=== PATIENT | male | born 1975 | race Caucasian/White ===

== ENCOUNTER 2020-01-12 16:24 | Emergency (ER) | payer BC, SELFPAY ==
--- NOTE | ~2020-01-12 | CT_ITS ---
EXAMINATION: CT abdomen pelvis w con INDICATION: Abdominal pain and nausea TECHNIQUE: Computed tomographic images of the abdomen and pelvis were obtained after the administrati on of 100 cc of Omnipaque 350 intravenous contrast. The dose-length product (DLP) was 691.86 mGy-cm. Automated exposure control and iterative reconstruction technique were employed. COMPARISON: None available FINDINGS: Minimal dependent atelectasis is present in the lung bases. The heart size is normal. The l iver, spleen, pancreas, gallbladder, and adrenal glands are normal. Cysts of the kidneys measure up t o 11 mm on the right. No pathologically enlarged abdominal or pelvic lymph nodes are identified. Ther e is no free intraperitoneal gas or evidence of bowel obstruction. The appendix is normal. IMPRESSION: 1. No CT correlate for the patient's symptoms. Reviewed, dictated and finalized at location A.
[2020-01-12 16:33] VITALS: BP 157/94; PULSE 88; RESP 18; TEMP 35.9; O2SAT 100
--- NOTE | 2020-01-12 16:53 | ED.ABDPAIN ---
HPI - Abdominal Pain General Chief Complaint: Abdominal Pain <CANDICE Johnson Last Filed: 01/12/20 18:26> Stated Complaint: Possible Appendicitis <CANDICE Johnson Last Filed: 01/12/20 18:26> Time Seen by Provider: 01/12/20 16:26 <CANDICE Johnson Last Filed: 01/12/20 18:26> Source: patient <CANDICE Johnson Last Filed: 01/12/20 18:26> Mode of arrival: ambulatory <CANDICE Johnson Filed: 01/12/20 18:26> Limitations: no limitations <CANDICE Johnson Last Filed: 01/12/20 18:26> History of Present Illness HPI narrative: Patient is a 44-year-old male who presents to emergency department from primary care doctor office for evaluation of right lower quadrant abdominal pain with associated nausea and chills for the last day patient has not taken anything for his symptoms patient denies rectal bleeding melena vomiting diarrhea patient denies sick contacts or similar occurrence in the past patient notes he has had nonproductive cough for the last 3 weeks patient on arrival resting comfortably in the room in no distress has not taken anything for his symptoms and denies similar occurrence in the past <CANDICE Johnson Last Filed: 01/12/20 18:26> Related Data Home Medications: Home Medications Medication Instructions Recorded Confirmed aripiprazole mg 01/12/20 dextroamphetamine-amphetamine PO 01/12/20 [Adderall XR] escitalopram oxalate mg 01/12/20 lisinopril 01/12/20 testosterone cypionate mg 01/12/20 <CANDICE Johnson Last Filed: 01/12/20 18:26> Allergies/Adverse Reactions: Allergies Allergy/AdvReac Type Severity Reaction Status Date / Time amoxicillin Allergy Unknown Unknown Verified 01/12/20 16:41 Penicillins Allergy Unknown Unknown Verified 01/12/20 16:41 <CANDICE Johnson Last Filed: 01/12/20 18:26> Review of Systems Review of Systems: All systems reviewed & are unremarkable except as noted in HPI and below <CANDICE Johnson Last Filed: 01/12/20 18:26> [facility] Social History Social History: Social History Gender identity (if verbalized by the patient): Male <Alex Rueda PA-C - Last Filed: 01/12/20 18:26> Exam Narrative: Exam Narrative: GENERAL: Well-appearing, well-nourished, and in no acute distress. HEAD: Normocephalic, atraumatic. EYES: PERRLA and EOMI. ENT: Nares clear, no rhinorrhea or epistaxis. Mucous membranes moist. CHEST: Clear to auscultation. No respiratory distress. No wheezes rales or rhonchi HEART: Regular rate and rhythm. No murmur heard. Normal peripheral pulses. ABDOMEN: Soft, right lower quadrant tenderness to palpation no rebound or guarding, nondistended EXTREMITIES: Normal range of motion. No edema. SKIN: Warm, dry, no rash. NEURO: No focal deficits. Alert and oriented x3. Cranial nerves II through XII grossly intact PSYCH: Normal mood and affect. <Alex Rueda PA-C - Last Filed: 01/12/20 18:26> Course Course Emergency Course: Patient in the room in no distress aware of case findings treatment plan and diagnosis agreeing to follow-up as directed or to return if symptoms worsen or concerns <Alex Rueda PA-C - Last Filed: 01/12/20 18:26> Vital Signs Vital signs: Vital Signs Temperature 35.9 C L 01/12/20 16:33 Pulse Rate 88 01/12/20 16:33 Respiratory Rate 18 01/12/20 16:33 Blood Pressure 157/94 H 01/12/20 16:33 Pulse Oximetry 100 01/12/20 16:33 Temperature 35.9 C L 01/12/20 16:33 Pulse Rate 78 01/12/20 18:44 Respiratory Rate 20 01/12/20 18:44 Blood Pressure 126/78 01/12/20 18:44 Pulse Oximetry 99 01/12/20 18:44 <Alex Rueda PA-C - Last Filed: 01/12/20 18:26> Vital Signs Temperature 35.9 C L 01/12/20 16:33 Pulse Rate 88 01/12/20 16:33 Respiratory Rate 18 01/12/20 16:33 Blood Pressure 1
[2020-01-12 17:02] LABS: Basophils Absolute Auto 0.1 K/mm3 (0.0-0.1); Basophils Percent Auto 0.7 % (0.2-1.2); Eosinophils Absolute Auto 0.3 K/mm3 (0-0.3); Eosinophils Percent Auto 4.4 % (0-4.4); Hematocrit 49.6 % (42.0-52.0); Hemoglobin 16.7 g/dL (14.0-18.0); Immature Granulocyte Absolute 0.03 K/mm3 (0.00-0.031); Immature Granulocyte Percent A 0.4 % (0-0.5); Lymphocytes Absolute Auto 2.08 K/mm3 (0.9-3.2); Lymphocytes Percent Auto 27.6 % (18.3-44.2); Mean Corpuscular HGB Conc 33.7 g/dl (32-36); Mean Corpuscular Hemoglobin 28.9 pg (26-34); Mean Corpuscular Volume 85.8 fl (80-100); Mean Platelet Volume 11.2 fl (7.4-10.4); Monocytes Absolute Auto 0.7 K/mm3 (0.1-0.6); Monocytes Percent Auto 9.5 % (2.6-8.5); Neutrophils Absolute Auto 4.3 K/mm3 (1.3-6.7); Neutrophils Percent Auto 57.4 % (45.5-73.1); Platelet Count Result 317 k/mm3 (150-375); Red Blood Count 5.78 M/mm3 (4.6-6.20); Red Cell Distribution Width 13.2 % (11.5-14.5); White Blood Count 7.5 K/mm3 (4.5-10.0)
[2020-01-12 17:04] LABS: Add Urine Microscopic? NO; Appearance Urine Clear (Clear); Bilirubin Urine Negative (Negative); Blood Urine Negative (Negative); Color Urine Yellow (Yellow); Glucose Urine UA Negative (Negative); Ketones Urine Negative (Negative); Leukocyte Esterase Ur Negative LEU/UL (Negative); Nitrate Urine Negative (Negative); Protein Urine Negative (Negative); Specific Grav Ur 1.024 (1.001-1.035); Urobilinogen Urine Negative mg/dL (<2.0)
[2020-01-12 17:17] LABS: Alanine Aminotransferase 40 U/L (4-50); Albumin Level 4.9 g/dL (3.5-5.1); Alkaline Phosphatase 85 U/L (38-126); Aspartate Amino Transferase 46 U/L (17-59); Bilirubin,Total 0.7 mg/dL (0.2-1.3); Blood Urea Nitrogen 16 mg/dL (9-20); Calcium 9.4 mg/dL (8.4-10.2); Carbon Dioxide 28 mmol/L (22-30); Chloride 104 mmol/L (98-107); Estimated CRCL calculation 110 ml/min; Estimated Glomerular Filt Rate > 60; Glucose 98 mg/dL (75-110); Lipase 97 U/L (23-300); Potassium 3.8 mmol/L (3.4-5.0); Sodium 139 mmol/L (137-145)
[2020-01-12] MEDS: ONDANSETRON INJ 4 MG/2 ML VIAL IV PUSH (17:27)
--- NOTE | 2020-01-12 17:29 | PC.NURSE ---
pt to CT at this time
[2020-01-12] MEDS: FAMOTIDINE 20 MG/2 ML VIAL IV PUSH (17:46)
[2020-01-12] MEDS: SODIUM CHLORIDE 0.9% IV 1,000 ML 999 ML IV CONT (17:46)
[2020-01-12 18:44] VITALS: BP 126/78; PULSE 78; RESP 20; O2SAT 99
== END 2020-01-12 18:48 | disposition home or self-care (01) ==
PROVIDERS: Emergency Provider Emergency Medicine; PCP Emergency Medicine
DX: R10.31 Right lower quadrant pain (principal)
CPT/HCPCS: 36415; 74177; 80053; 81003; 83690; 85025; 96365; 96375; 99284; J0131; J2405; J7030; Q9967